=== PATIENT | male | born 1960 | race Caucasian/White ===

== ENCOUNTER 2023-01-21 16:49 | Emergency (ER) | payer OTHER, SELFPAY ==
[2023-01-21] VITALS (7 sets, daily range): BP systolic 145–176; BP diastolic 74–104; PULSE 72–105; RESP 16–24; TEMP 36.8; O2SAT 91–95; BMI 34.4
--- NOTE | 2023-01-21 17:13 | ED_ITS ---
HPI - General Adult General Date Seen: 01/21/23 Chief complaint: Cough Stated complaint: Possible pneumonia- has bronchitis (01/04/23) Time Seen by Provider: 01/21/23 16:52 Source: patient Mode of arrival: ambulatory Limitations: no limitations History of Present Illness HPI narrative: Patient is a 62-year-old male with a history of hypertension presenting to the emergency department for concern for pneumonia. He states couple weeks ago he was diagnosed with bronchitis and started on doxycycline. He finished a course 1 week ago. He was also started on lisinopril at that time. He noticed few days ago hit his cough chain she feels deeper than previously. He stop the lisinopril because he thought it might be a side effect of that medication. He stopped lisinopril 3 days ago. States he also feels like his breathing might be little more shallow than normal but denies feeling short of breath or any chest pain. Does note he has been having a sore throat but has been able to eat and drink without issues. Denies fevers, chills, lightheadedness, dizziness, abdominal pain, diarrhea, constipation, nausea/vomiting, headache. No other concerns noted at this time Related Data Previous Rx's Medication Instructions Recorded albuterol sulfate 90 mcg/actuation 2 puff inhalation Q4-6H PRN 01/04/23 aerosol inhaler shortness of breath or wheezing #6.7 grams lisinopril 10 mg tablet 10 mg PO QDAY #30 tabs 01/04/23 amoxicillin 875 mg-potassium 1 tab PO BID #10 tabs 01/21/23 clavulanate 125 mg tablet Allergies Allergy/AdvReac Type Severity Reaction Status Date / Time No Known Drug Allergies Allergy Verified 01/21/23 16:59 Review of Systems Status of ROS: Reports: 10 or more systems reviewed and unremarkable except as noted in History and below Exam Narrative: Exam Narrative: Const: Well-nourished, Well-developed, in no distress Eyes: PERRL, no conjunctival injection, and symmetrical lids HENT: Atraumatic external nose and ears. Mildly erythematous oropharynx, uvula midline, no tonsillar exudate or swelling Neck: Symmetric, trachea midline, No thyromegaly. CVS: RRR, No murmurs or gallops. Peripheral pulses 2+ and equal in all extremities RESP: Unlabored respiratory effort. Clear to auscultation bilaterally. GI: Nontender/Nondistended, No rebound or guarding. MSK:Extremities w/o deformity, Normal Active ROM Skin: Warm, Dry. No rashes or lesions. Neuro: Normal Muscle tone, No focal neurological deficits. Psych: Awake, Alert, & Oriented x3. Appropriate mood and affect. Const: Vital Signs, click to edit/add: Vital Signs - 24 hr 01/21/23 16:56 01/21/23 16:56 01/21/23 17:25 Temperature 98.3 F Pulse Rate [Pulse Oximeter] 105 H 95 84 Respiratory Rate 20 24 18 Blood Pressure [Ri ght Upper Arm] 176/74 H 176/104 H 169/101 H Pulse Oximetry 93 93 92 Oxygen Delivery Me thod Room Air Room Air Room Air 01/21/23 17:35 01/21/23 18:10 01/21/23 18:35 Temperature Pulse Rate [Pulse Oximeter] 87 94 72 Respiratory Rate 20 16 18 Blood Pressure [Ri ght Upper Arm] 161/91 H 156/92 H 155/88 H Pulse Oximetry 93 94 91 Oxygen Delivery Me thod Room Air Room Air Room Air Course Vital Signs Vital signs: Initial Vital Signs Temperature 98.3 F 01/21/23 16:56 Temperature Source Temporal Artery Scan 01/21/23 16:56 Pulse Rate 105 H 01/21/23 16:56 Pulse Rhythm Irregular 01/21/23 16:56 Respiratory Rate 20 01/21/23 16:56 Respiratory Effort Normal, Spontaneous, Non-Labored 01/21/23 16:56 Respiratory Depth Normal 01/21/23 16:56 Respiratory Pattern Normal 01/21/23 16:56 Blood Pressure 176/74 H 01/21/23 16:56 Blood Pressure Mean 108 H 01/21/23 16:56 Blood Pressure Position Sitting 01/21/23 16:56 Pulse Oximetry 93 01/21/23 16:56 Oxygen Delivery Method Room Air 01/21/23 16:56 Vital Signs Temperature 98.3 F 01/21/23 16:56 Pulse Rate 105 H 01/21/23 16:56 Respiratory Rate 20 01/21/23 16:56 Blood Pressure 176/74 H 01/21/23 16:56 Pulse Oximetry 93 01/21/23 16:56 Oxygen Delivery Method Room Air 01/21/23 16:56 Temperature 98.3 F 01/21/23 16:56 Pulse Rate 72 01/21/23 18:35 Respiratory Rate 18 01/21/23 18:35 Blood Pressure 155/88 H 01/21/23 18:35 Pulse Oximetry 91 01/21/23 18:35 Oxygen Delivery Method Room Air 01/21/23 18:35 Medical Decision Making MDM Narrative Medical decision making narrative: Patient is a 62-year-old male presented emergency department for concern for pneumonia. He states he has been having a worsening cough for the past few days. He thought was due to his lisinopril so he stopped it. He was recently started lisinopril few weeks ago. He also states he feels like he is taking shallower breaths and has a sore throat. Does not feel short of breath though and has been eating and drinking normally. He is concerned he is developing pneumonia so to get a good evaluation of this we will do a chest CT. Pulmonary embolism is on the differential D-dimer was ordered. Symptoms could also be ACS or pneumothorax related. Symptoms likely to be aortic dissection considering the patient is not having much pain. CBC returned at 12.25 in with his tachycardia he does meets SIRS criteria any lactate was ordered. Also ordered a CMP, troponin, BNP, COVID/flu, strep. Age adjusted D-dimer within normal limits. Rest of CBC and CMP showed no concerning abnormalities. Troponin is less than 0.01 BNP is only 30. COVID and flu are negative CT scan of the chest shows multiple spots of bronchial pneumonia. Also shows nodules likely follow up outpatient. Patient is already aware of these nodules. Patient's port score is 64. Of note we did not do ABG as I do not find necessary. He is otherwise appearing well. He is a good candidate for outpatient treatment. Since he has previously been on doxycycline I will place him on Augmentin. Lab Data Labs: Lab Results 01/21/23 01/21/23 01/21/23 Range/Units 17:06 17:22 17:22 WBC 12.25 H (4.50-11.00) K/uL RBC 4.89 (4.30-5.90) m/uL Hgb 14.7 (13.5-17.5) gm/dL Hct 44.5 (37.0-53.0) % MCV 91 (80-100) fL MCH 30 (26-34) pg MCHC 33 (32-36) gm/dL RDW Coeff of Dionna 13.0 (11.5-15.5) % Plt Count 243 (140-440) K/uL Neut % (Auto) 66.1 (42.0-72.0) % Lymph % (Auto) 18.7 L (20-44) % Charles % (Auto) 11.9 H (0.0-11.0) % Eos % (Auto) 2.9 (0.0-7.0) % Baso % (Auto) 0.2 (0.0-3.0) % Neut # (Auto) 8.10 H (1.7-7.0) K/uL Lymph # (Auto) 2.30 (0.90-2.90) K/uL Charles # (Auto) 1.50 H (0.00-0.90) K/UL Eos # (Auto) 0.40 (0.00-0.50) K/uL Baso # (Auto) 0.00 (0.00-0.30) K/uL Abs Immat Gran (auto) 0.00 (0.00-0.30) K/uL Imm/Tot Granulo (auto) 0.2 % D-Dimer Quant (PE/DVT) 0.57 H (0.00-0.50) ug/ml Sodium 135 (135-149) mmol/L Potassium 3.7 (3.6-5.1) mmol/L Chloride 101 (96-114) mmol/L Carbon Dioxide 26 (20-32) mmol/L Anion Gap 8 (7-15) mEq/L BUN 15 (7-30) mg/dL Creatinine 0.6 (0.5-1.5) mg/dL Estimated Creat Clear 77.06 Estimated GFR 108 ml/min Glucose 108 (60-115) mg/dL Lactate (0.5-1.9) mmol/L Calcium 8.7 (8.4-10.6) mg/dL Total Bilirubin 0.8 (0.1-1.5) mg/dL AST 61 H (12-35) U/L ALT 86 H (4-50) U/L Alkaline Phosphatase 127 (40-150) U/L Troponin I < 0.01 L Cancelled (0.01-0.04) ng/mL NT-Pro-B Natriuret Pep 30 pg/mL Total Protein (6.0-8.3) g/dL Albumin (3.3-5.0) g/dL SARS-CoV-2 (PCR) Negative SARS-CoV-2 (Negative) Influenza Type A (PCR) Negative PCR FLU A (Negative) Influenza Type B (PCR) Negative PCR FLU B (Negative) Group A Strep DNA NOT DETECTED (Not Detectd) POC Creatinine (0.6-1.3) mg/dl 01/21/23 01/21/23 Range/Units 17:22 19:24 WBC (4.50-11.00) K/uL RBC (4.30-5.90) m/uL Hgb (13.5-17.5) gm/dL Hct (37.0-53.0) % MCV (80-100) fL MCH (26-34) pg MCHC (32-36) gm/dL RDW Coeff of Dionna (11.5-15.5) % Plt Count (140-440) K/uL Neut % (Auto) (42.0-72.0) % Lymph % (Auto) (20-44) % Charles % (Auto) (0.0-11.0) % Eos % (Auto) (0.0-7.0) % Baso % (Auto) (0.0-3.0) % Neut # (Auto) (1.7-7.0) K/uL Lymph # (Auto) (0.90-2.90) K/uL Charles # (Auto) (0.00-0.90) K/UL Eos # (Auto) (0.00-0.50) K/uL Baso # (Auto) (0.00-0.30) K/uL Abs Immat Gran (auto) (0.00-0.30) K/uL Imm/Tot Granulo (auto) % D-Dimer Quant (PE/DVT) (0.00-0.50) ug/ml Sodium (135-149) mmol/L Potassium (3.6-5.1) mmol/L Chloride (96-114) mmol/L Carbon Dioxide (20-32) mmol/L Anion Gap (7-15) mEq/L BUN (7-30) mg/dL Creatinine (0.5-1.5) mg/dL Estimated Creat Clear Estimated GFR ml/min Glucose (60-115) mg/dL Lactate 1.1 (0.5-1.9) mmol/L Calcium (8.4-10.6) mg/dL Total Bilirubin (0.1-1.5) mg/dL AST (12-35) U/L ALT (4-50) U/L Alkaline Phosphatase (40-150) U/L Troponin I (0.01-0.04) ng/mL NT-Pro-B Natriuret Pep Cancelled pg/mL Total Protein 7.8 (6.0-8.3) g/dL Albumin 4.4 (3.3-5.0) g/dL SARS-CoV-2 (PCR) (Negative) Influenza Type A (PCR) (Negative) Influenza Type B (PCR) (Negative) Group A Strep DNA (Not Detectd) POC Creatinine 0.8 (0.6-1.3) mg/dl Imaging Data CT scan - chest: Radiologist's impression: 1. Multifocal bronchopneumonia. No findings of necrosis or cavitation. 2. Bilateral pulmonary nodules, measuring up to 0.9 cm. Recommend follow-up CT in 3-6 months, per the Fleischner Society guideline. Please note that all CT scans at this facility use dose modulation, iterative reconstruction, and/or weight-based dosing when appropriate to reduce radiation dose to as low as reasonably achievable. Dictated by Barbara Jones MD @ 01/21/2023 7:04:57 PM ECG Data Attestation: I personally reviewed and interpreted this ECG as follows: Prior ECG tracings: available for review Interpretation: Normal sinus rhythm, normal intervals, normal axis, no ST or T-wave abnormalities. There are occasional PVCs. Rate of 106 beats per minute. Discharge Plan Discharge Clinical Impression: Pneumonia Patient Disposition: Home, Self-Care Condition: Stable Additional Instructions: Take the antibiotics as prescribed. If symptoms persist to get follow-up with the primary care provider. His symptoms get worse or develop new symptoms should return to the emergency department for re-evaluation. Your cough also m ay have been secondary to the lisinopril but hard to determine this with your pneumonia. Prescriptions: New amoxicillin-pot clavulanate 875-125 mg tablet 1 tab PO BID Qty: 10 0RF No Action lisinopril 10 mg tablet 10 mg PO QDAY Qty: 30 0RF albuterol sulfate 90 mcg/actuation HFA aerosol inhaler 2 puff inhalation Q4-6H PRN (Reason: shortness of breath or wheezing) Qty: 6.7 0RF Follow Up/Referrals: Provider,Not a Local [Primary Care Provider] - Stand Alone Forms: [email or web address] Info Instructions
[2023-01-21 17:37] LABS: Creatinine, Point-of-Care* 0.8 mg/dl (0.6-1.3)
[2023-01-21 17:47] LABS: Basophils Percent Auto 0.2 % (0.0-3.0); Eosinophils Percent Auto 2.9 % (0.0-7.0); Hematocrit 44.5 % (37.0-53.0); Hemoglobin* 14.7 gm/dL (13.5-17.5); Immature Granulocytes Pct Auto 0.2 %; Lymphocytes Percent Auto 18.7 % (20-44); Mean Corpuscular HGB Conc 33 gm/dL (32-36); Mean Corpuscular Hemoglobin 30 pg (26-34); Mean Corpuscular Volume 91 fL (80-100); Monocytes Percent Auto 11.9 % (0.0-11.0); Neutrophils Percent Auto 66.1 % (42.0-72.0); Platelet Count* 243 K/uL (140-440); Red Blood Count 4.89 m/uL (4.30-5.90); White Blood Count* 12.25 K/uL (4.50-11.00)
[2023-01-21 17:50] LABS: Slide Review Reflex No
[2023-01-21 18:01] LABS: Albumin* 4.4 g/dL (3.3-5.0); Chloride* 101 mmol/L (96-114)
[2023-01-21 18:02] LABS: Potassium* 3.7 mmol/L (3.6-5.1); Sodium* 135 mmol/L (135-149)
[2023-01-21 18:04] LABS: Alkaline Phosphatase* 127 U/L (40-150); Anion Gap 8 mEq/L (7-15); Aspartate Amino Transferase* 61 U/L (12-35); Bilirubin Total* 0.8 mg/dL (0.1-1.5); Blood Urea Nitrogen* 15 mg/dL (7-30); Carbon Dioxide* 26 mmol/L (20-32); Creatinine* 0.6 mg/dL (0.5-1.5); Est. Creatinine Clearance* 77.06; Estimated Glomerular Filt Rate 108 ml/min; Total Protein* 7.8 g/dL (6.0-8.3)
[2023-01-21 18:05] LABS: Alanine Aminotransferase* 86 U/L (4-50); Calcium* 8.7 mg/dL (8.4-10.6); Glucose* 108 mg/dL (60-115)
[2023-01-21 18:08] LABS: D Dimer Quantitative* 0.57 ug/ml (0.00-0.50)
--- NOTE | 2023-01-21 18:14 | CRLHL7_ITS ---
For Patients: As a result of the Century Cures Act, medical imaging exams and procedure reports are released immediately into your electronic medical record. You may view this report before your referring provider. If you have questions, please contact your health care provider. INDICATION: Short of breath, cough, concern for pneumonia COMPARISON: None TECHNIQUE: CT chest without contrast. Multiplanar axial, coronal, and sagittal reformats are included. MIP images to improve detection of pulmonary nodules are included. Intravenous contrast: None FINDINGS: Lungs and airways: Multifocal centrilobular to confluent opacities scattered throughout both lungs. Findings are most severe in the posteromedial apical segment of the left lower lobe, likely a full-blown pneumonia / consolidation. No areas of necrosis or cavitation. There is a superimposed 0.9 cm nodule in the periphery of the left lower lobe. There are a few smaller nodules bilaterally. Pleura: No pleural effusion. No pneumothorax. Lymph nodes: No thoracic adenopathy. Mediastinum: No pneumomediastinum. Heart and great vessels: No pericardial effusion. Normal cardiac chamber size. Moderate coronary atherosclerotic plaques. No aortic aneurysm. Bones: No fractures. No focal bone lesions. Normal for age. Chest wall: Normal. No masses. Upper abdomen: There is an 8 mm calculus in the left collecting system. IMPRESSION: 1. Multifocal bronchopneumonia. No findings of necrosis or cavitation. 2. Bilateral pulmonary nodules, measuring up to 0.9 cm. Recommend follow-up CT in 3-6 months, per the Fleischner Society guideline. Please note that all CT scans at this facility use dose modulation, iterative reconstruction, and/or weight-based dosing when appropriate to reduce radiation dose to as low as reasonably achievable. Dictated by Barbara Jones MD @ 01/21/2023 7:04:57 PM (Electronically Signed)
[2023-01-21 18:16] LABS: NT Pro B Type NatriureticPept* 30 pg/mL
[2023-01-21 18:27] LABS: Strep A DNA Probe* NOT DETECTED (Not Detectd)
[2023-01-21 18:28] LABS: Troponin I* < 0.01 ng/mL (0.01-0.04)
[2023-01-21 18:33] LABS: PCR FLU A Negative PCR FLU A (Negative); PCR FLU B Negative PCR FLU B (Negative)
[2023-01-21 18:39] LABS: SARS PCR* Negative SARS-CoV-2 (Negative)
[2023-01-21 19:28] LABS: Lactate* 1.1 mmol/L (0.5-1.9)
[2023-01-21] MEDS: AMOXICILLIN/CLAVULANATE 875 mg/125 mg TABLET PO (19:57)
== END 2023-01-21 19:59 | disposition home or self-care (01) ==
PROVIDERS: Emergency Provider Student in an Organized Health Care Education/Training Program
DX: J18.9 Pneumonia, unspecified organism (principal)
CPT/HCPCS: 36415; 71250; 80053; 82565; 83605; 83880; 84484; 85025; 85379; 87631; 87651; 93005; 95992; 99283; 99284; 99285; A9270